=== PATIENT | female | born 1955 | race Caucasian/White ===

== ENCOUNTER → 2023-04-27 | Outpatient (CLI) | payer MEDICARE, SELFPAY ==
[2023-04-27 13:24] LABS: Hepatitis C Antibody Non-Reactive (Nonreactive)
== END | disposition home or self-care (01) ==
LOC: MTLAB 11:09
PROVIDERS: Referring Provider Physician Assistant Medical; Visit Provider Physician Assistant Medical
DX: L66.1 Lichen planopilaris (principal); L81.0 Postinflammatory hyperpigmentation; L73.8 Other specified follicular disorders; L57.0 Actinic keratosis; L57.8 Other skin changes due to chronic exposure to nonionizing radiation
CPT/HCPCS: 36415; 86803